=== PATIENT | female | born 1950 | race Caucasian/White ===

== ENCOUNTER 2019-12-13 12:33 | Emergency (ER) | payer MEDICAID, MEDICARE ==
[~2019-12-13] VITALS: Ht 172.7 cm; Wt 77.1 kg
[2019-12-13 12:37] VITALS: BP 156/90
[2019-12-13] MEDS ORDERED: LANTUS SOL100 UNIT/1 SUBQ (12:40)
--- NOTE | 2019-12-13 12:53 | NUR ---
ED Nurse Note: PT. AAOX4. AMBULATORY WITH STEADY GAIT. PT. WALKED IN TO ER FROM HOME. PT STATED THAT SHE FELL OFF FROM THE CHAIR AND HIT HER BUTT X 3 WEEKS AGO AND STILL HURTING.
--- NOTE | 2019-12-13 12:54 | Emergency Room Report ---
History of Present Illness General Chief Complaint: Lower Back Pain or Injury Source: Patient Present Illness HPI Patient is a 69-year-old female who presents after a fall. She reports having recent fall from chair onto her backside. She denies loss of consciousness. Injury occurred several weeks ago. She reports having a persistent pain to her low back. Denies any incontinence. She had been taking insulin for diabetes but denies any other medical history. She had recent upper respiratory infection. Denies any hematuria. Remote history of breast cancer not currently undergoing any therapy. Allergies: Coded Allergies: No Known Allergies (Unverified , 12/13/19) Patient History Past Medical History: see triage record Reviewed Nursing Documentation: PMH: Agreed; PSxH: Agreed Nursing Documentation-PMH Hx Diabetes: Yes - TYPE 2 Review of Systems All Other Systems: negative except mentioned in HPI Physical Exam Vital Signs Date Time Temp Pulse Resp B/P (MAP) Pulse Ox O2 Delivery O2 Flow Rate FiO2 12/13/19 12:37 97.7 90 19 156/90 (112) 96 Room Air Sp02 EP Interpretation: reviewed, normal General Appearance: normal inspection, well appearing, no apparent distress, alert, GCS 15 Head: atraumatic ENT: normal ENT inspection, hearing grossly normal, normal voice Neck: normal inspection, full range of motion, supple, no bony tend Respiratory: normal inspection, lungs clear, normal breath sounds, no respiratory distress, no retraction, no wheezing Cardiovascular #1: regular rate, rhythm, no edema Gastrointestinal: normal inspection, normal bowel sounds, non tender, soft, no guarding, no hernia Genitourinary: no CVA tenderness Musculoskeletal: normal inspection, back normal, decreased range of motion, other - lumbar paraspinous tenderness, no vertebral tenderness Neurologic: alert, motor strength/tone normal, career services assistant III-XII nml as tested, oriented x3, responsive, speech normal, normal inspection Psychiatric: normal inspection, judgement/insight normal, mood/affect normal Medical Decision Making Diagnostic Impression: Primary Impression: Fall Additional Impressions: Low back pain Diabetes Pathologic vertebral fracture ER Course Patient presented for low back pain. Differential diagnosis included but was not limited to herniated disc, cauda equina syndrome, abdominal aortic aneurysm , perforated ulcer, spinal epidural abscess, spinal stenosis, lumbar fracture, metastatic lesion, pyelonephritis. Patient was noted to have a benign exam. Does not show any signs of incontinence or urinary retention. CT imaging was ordered to patient's complaint of pain. CT imaging showed age-indeterminate fractures as per radiology report. Patient does not show any evidence of cord compromise or lower extremity weakness or saddle anesthesia at this time. She is ambulatory without assistance. She is given prescriptions for pain medications. Patient was given prescription for symptomatic treatment. Patient was advised to recheck with primary care physician in 1-2 days for spine surgeon, evaluation as well as recheck with her oncologist or primary care physician. Patient to return for any worsening, pain, fever, incontinence or other concerns. Labs Test 12/13/19 13:11 Urine Color Pale yellow Urine Appearance Clear Urine pH 5 (4.5-8.0) Urine Specific [place] 1.020 (1.005-1.035) Urine Protein Negative (NEGATIVE) Urine Glucose (UA) 4+ (NEGATIVE) Urine Ketones Negative (NEGATIVE) Urine Blood Negative (NEGATIVE) Urine Nitrite Negative (NEGATIVE) Urine Bilirubin Negative (NEGATIVE) Urine Urobilinogen Normal MG/DL (0.0-1.0) Urine Leukocyte Esterase 1+ (NEGATIVE) Urine RBC 0 /HPF (0 - 2) Urine WBC 5-10 /HPF (0 - 2) Urine Squamous Epithelial Cells Few /LPF (NONE/OCC) Urine Bacteria Few /HPF (NONE) Last Vital Signs Date Time Temp Pulse Resp B/P (MAP) Pulse Ox O2 Delivery O2 Flow Rate FiO2 12/13/19 12:37 97.7 90 19 156/90 (112) 96 Room Air Status: improved Disposition: HOME, SELF-CARE Condition: Stable Scripts Methocarbamol* (ROBAXIN-750*) 750 Mg Tablet 750 MG PO TID, #21 TAB 0 Refills Prov: Dominic Johnson MD 12/13/19 Docusate Sodium* (COLACE*) 100 Mg Capsule 100 MG ORAL TWICE A DAY, #20 CAP Prov: Dominic Johnson MD 12/13/19 Hydrocodone Bit/Acetaminophen 5-325* (NORCO 5-325*) 1 Each Tablet 1 TAB ORAL Q6H PRN for For Pain, #12 TAB 0 Refills Prov: Dominic Johnson MD 12/13/19 Dominic Johnson MD Dec 13, 2019 12:54
--- NOTE | 2019-12-13 12:54 | NUR ---
ED Nurse Note: PT. WENT DOWN TO CT
[2019-12-13] MEDS ORDERED: Ketorolac 60mg Inj IM ONE (13:00)
--- NOTE | 2019-12-13 13:56 | Diagnostic Imaging Report ---
Indication: Back pain Technique: Continuous helical transaxial imaging of the lumbar spine was obtained. Coronal 2-D reformats were also obtained. Study obtained in a Siemens sensation [address] Total Dose length Product (DLP): 777.[address] Dose Index Volume (CTDIvol): 18.8 mGy Comparison: None Findings: Mild superior endplate deformity present at the T12 vertebra. Moderate endplate depression involving the superior endplate of L3 also noted. These may be old but please correlate clinically. The T11 vertebra is abnormal with extensive trabeculation suggestive of hemangiomata. Some heterogeneous areas of lucency are also noted involving the T11 vertebra as well as the right pedicle. There is a questionable superimposed pathologic fracture involving the vertebra.. Consider MRI for further evaluation of this. Soft tissue swelling may be present also in the paravertebral region. L4-5 is notable for hypertrophic facets and some sclerosis. Mild anterolisthesis noted at this level. There is probable neural foraminal stenosis. Aorta is mildly calcified. IMPRESSION: Heterogeneously hyperlucency and T11 vertebra likely on the basis of hemangioma formation. Suspected pathologic fracture at this level. Evaluation with MRI suggested as well as clinical correlation. Mild superior endplate depression involving the T12 and L3 vertebra probably old. Degenerative changes as described above [facility] has communicated the preliminary results to the Emergency Department. Their findings are largely concordant with this report. The CT scanner at [facility] is accredited by the [employer] and the scans are performed using dose optimization techniques as appropriate to a performed exam including Automatic Exposure control.
[2019-12-13 13:58] LABS: APPEARANCE,URINE CLEAR; BILIRUBIN, URINE NEGATIVE (NEGATIVE); COLOR,URINE PALE YELLOW; GLUCOSE, URINE (UA) 4+ (NEGATIVE); KETONES,URINE NEGATIVE (NEGATIVE); LEUKOCYTE ESTERASE ,URINE 1+ (NEGATIVE); NITRITE,URINE NEGATIVE (NEGATIVE); PH,URINE 5 (4.5-8.0); PROTEIN,URINE NEGATIVE (NEGATIVE); UROBILINOGEN,URINE NORMAL MG/DL (0.0-1.0)
[2019-12-13] MEDS ORDERED: NORCO 5-325 TA1 EACH ORAL (14:16)
[2019-12-13] MEDS ORDERED: COLACE100 MG ORAL (14:16)
[2019-12-13] MEDS ORDERED: ROBAXIN-750750 MG PO (14:16)
[2019-12-13 14:26] VITALS: BP 156/90
--- NOTE | 2019-12-13 14:26 | NUR ---
ER DISCHARGE NOTE: Pt is cleared to be discharged per ERMD, pt is AOx4, VSS, on RA. pt was given dc and prescription instructions, pt was able to verbalize understanding, pt id band removed. pt is able to ambulate with steady gait. pt took all belongings.
== END 2019-12-13 14:26 | disposition home or self-care (01) ==
LOC: EMR 13:00
DX: M54.5 Low back pain (principal); E11.9 Type 2 diabetes mellitus without complications; S22.089G Unspecified fracture of T11-T12 vertebra, subsequent encounter for fracture with delayed healing; Z85.3 Personal history of malignant neoplasm of breast; W19.XXXA Unspecified fall, initial encounter; Y92.9 Unspecified place or not applicable
CPT/HCPCS: 72131; 81003; 82962; 96372; 99284

== ENCOUNTER 2020-03-10 18:38 | Emergency (ER) | payer MEDICARE, MEDICAID ==
[~2020-03-10] VITALS: Ht 170.2 cm; Wt 79.4 kg
[~2020-03-10 18:38] MED LIST: COLACE100 MG ORAL; LANTUS SOL100 UNIT/1 SUBQ; NORCO 5-325 TA1 EACH ORAL; ROBAXIN-750750 MG PO
--- NOTE | 2020-03-10 18:59 | NUR ---
ED Nurse Note: Pt from home walked in due to leftgroin pain x 3 days getting worse radiating to her left thigh. Pt's roommate dropped her off. per pt, Hx of diabetes and R breast CA and mets to vertebrae and pelvis. Scheduled to see spine MD. Xray ordered.
[2020-03-10] MEDS ORDERED: Ondansetron ODT 8mg tab ORAL ONE (19:00)
[2020-03-10] MEDS ORDERED: Ketorolac 30mg Inj IM ONE (19:00)
[2020-03-10] MEDS ORDERED: HYDROcodone/Acetamin 5/325 tab ORAL ONE (19:00)
--- NOTE | 2020-03-10 19:00 | Emergency Room Report ---
History of Present Illness General Chief Complaint: Pain Source: Patient Present Illness HPI 70-year-old female history of diabetes, hypertension history of metastatic breast cancer migrated to pelvis as well as back, patient is pending biopsy she endorses left groin pain that radiated down her left thigh sharp in nature, no aggravating factors alleviated with pain medication severity is severe, intermittent pain patient denies any bowel bladder retention/incontinence no perineal numbness patient presents for evaluation. She states she has a biopsy of the lesion next week. Patient presents for evaluation and pain control Allergies: Coded Allergies: No Known Allergies (Unverified , 12/13/19) COVID-19 Screening Contact w/high risk pt: No Recent Travel to affected area: No Experienced COVID-19 symptoms?: No Patient History Past Medical History: see triage record Reviewed Nursing Documentation: PMH: Agreed; PSxH: Agreed Nursing Documentation-PMH Hx Diabetes: Yes - TYPE 2 Hx Cancer: Yes - breast Review of Systems All Other Systems: negative except mentioned in HPI Physical Exam Vital Signs Date Time Temp Pulse Resp B/P (MAP) Pulse Ox O2 Delivery O2 Flow Rate FiO2 03/10/20 18:44 98.2 76 16 181/92 (121) 96 Room Air General Appearance: well appearing, no apparent distress Head: normocephalic, atraumatic ENT: hearing grossly normal, normal voice Neck: full range of motion, supple Respiratory: no respiratory distress, speaking full sentences Musculoskeletal: other - TTP left groin director of philanthropy Juanis CARY Neurologic: alert, normal gait Psychiatric: mood/affect normal Skin: no rash Medical Decision Making Diagnostic Impression: Primary Impression: Cancer related pain ER Course 70-year-old female presents with most likely cancer related pain will obtain x- ray to rule out pathological fracture. X-rays negative, patient already has pain medications at home, will not provide another prescription, Patient given strict return precautions follow-up with PCP Other X-Ray Diagnostic Results Other X-Ray Diagnostic Results : X-Ray ordered: Pelvis, left hip # of Views/Limited Vs Complete: 3 View Indication: Pain EP Interpretation: Yes Interpretation: no dislocation, no fractures Impression: Other - No acute fracture dislocation, hip replacement noted Last Vital Signs Date Time Temp Pulse Resp B/P (MAP) Pulse Ox O2 Delivery O2 Flow Rate FiO2 03/10/20 18:44 98.2 76 16 181/92 (121) 96 Room Air Disposition: HOME, SELF-CARE Condition: Stable Referrals: [facility] Mahi Ortiz. [facility] Patient Instructions: Chronic Pain Additional Instructions: The patient was provided with discharge instructions, notified to follow-up with a primary care doctor and or specialist in the next 24-48 hours, and to return to the ED if they have worsening of their symptoms. Please note that this report is being documented using [employer] technology. This can lead to erroneous entry secondary to incorrect interpretation by the dictating instrument. Eduard Frost MD Mar 10, 2020 19:00
[2020-03-10 19:01] VITALS: BP 181/92
--- NOTE | 2020-03-10 19:15 | NUR ---
ED Nurse Note: information technology technician at bedside.
--- NOTE | 2020-03-10 19:18 | NUR ---
HAND-OFF: Report given to LUIS DANIEL Ibarar.
--- NOTE | 2020-03-10 19:23 | NUR ---
ED Nurse Note: ERMD at bedside.
[2020-03-10 19:32] VITALS: BP 181/92
--- NOTE | 2020-03-10 19:32 | NUR ---
ER DISCHARGE NOTE: Patient is cleared to be discharged per ERMD, pt is aox4, on room air, with stable vital signs. pt was given dc and prescription instructions, pt was able to verbalize understanding, pt id band removed. pt is able to ambulate with steady gait. pt took all belongings.
--- NOTE | 2020-03-10 20:25 | Diagnostic Imaging Report ---
Indication: Left hip pain Technique: 2 views of the left hip, one view of the pelvis Comparison: none Findings: There is a left hip hemiarthroplasty prosthesis. This appears intact. No worrisome periprosthetic lucency. No acute fractures. No dislocations. The right hip joint space is preserved. Impression: No acute process
== END 2020-03-10 19:35 | disposition home or self-care (01) ==
LOC: EMR 19:02
DX: R10.2 Pelvic and perineal pain (principal); I10 Essential (primary) hypertension; E11.9 Type 2 diabetes mellitus without complications; M54.5 Low back pain; C50.912 Malignant neoplasm of unspecified site of left female breast
CPT/HCPCS: 73502; 96372; 99283; J1885; Q0162